=== PATIENT | female | born 1960 | race Caucasian/White ===

== ENCOUNTER 2021-09-28 05:27 | Emergency (ER) | payer OTHER ==
[~2021-09-28] VITALS: Ht 157.5 cm; Wt 8102.0 kg
[~2021-09-28 05:27] MED LIST: ONDA4TAB5 MT
[2021-09-28] MEDS ORDERED: KETOROLAC 60MG/2ML VIAL IM ONE (06:15)
[2021-09-28] MEDS ORDERED: ACETAMINOPHEN 325MG TABLET PO ONE (06:15)
[2021-09-28] MEDS ORDERED: IBUP-2028 MT (07:37)
[2021-09-28] MEDS ORDERED: TOPUD PO (07:37)
[2021-09-28 08:07] VITALS: BP 128/86
== END 2021-09-28 08:08 | disposition home or self-care (01) ==
LOC: ER 05:27
DX: R51.9 Headache, unspecified (principal); E11.9 Type 2 diabetes mellitus without complications; E78.00 Pure hypercholesterolemia, unspecified; I10 Essential (primary) hypertension; Z88.0 Allergy status to penicillin
CPT/HCPCS: 96372; 99283; J1885

== ENCOUNTER 2021-11-02 19:56 | Emergency (ER) | payer OTHER ==
[~2021-11-02] VITALS: Ht 152.4 cm; Wt 84.2 kg
[~2021-11-02 19:56] MED LIST changes: +IBUP-2028 MT; +TOPUD PO
[2021-11-02 20:28] VITALS: BP 156/82
[2021-11-02] MEDS ORDERED: AMOXICILLIN/POTASSIUM CLAVULANATE 875/125MG TAB PO ONE (21:00)
[2021-11-02] MEDS ORDERED: TETANUS, DIPHTHERIA, PERTUSSIS VAC/PF 0.5ML (>10YR OLD) IM ONE (21:00)
[2021-11-02] MEDS ORDERED: BACITRACIN ZINC OINT UDPKT TOP ONE (21:00)
[2021-11-02] MEDS ORDERED: AMOX-424 MT (21:55)
== END 2021-11-02 22:10 | disposition home or self-care (01) ==
LOC: ER 20:09
DX: S61.200A Unspecified open wound of right index finger without damage to nail, initial encounter (principal); W64.XXXA Exposure to other animate mechanical forces, initial encounter; Y93.89 Activity, other specified; Y92.89 Other specified places as the place of occurrence of the external cause; Y99.8 Other external cause status; E11.9 Type 2 diabetes mellitus without complications; E78.00 Pure hypercholesterolemia, unspecified; I10 Essential (primary) hypertension; Z88.0 Allergy status to penicillin
CPT/HCPCS: 73140; 90471; 90715; 99283